=== PATIENT | male | born 1945 | race Caucasian/White ===

== ENCOUNTER 2017-01-03 10:36 | Day surgery (SDC) | payer BC ==
[~2017-01-03] VITALS: Ht 185.4 cm; Wt 140.6 kg
== END 2017-01-03 14:40 | disposition short-term general hospital (02) ==
LOC: SURGOP
PROC: 0DBK8ZZ Excision of Ascending Colon, Via Natural or Artificial Opening Endoscopic (ICD-10-PCS; principal; 2017-01-03)
DX: Z12.11 Encounter for screening for malignant neoplasm of colon (principal); K63.5 Polyp of colon; J45.909 Unspecified asthma, uncomplicated; E78.5 Hyperlipidemia, unspecified; G47.30 Sleep apnea, unspecified; R01.1 Cardiac murmur, unspecified; K42.9 Umbilical hernia without obstruction or gangrene; R73.03 Prediabetes; Z79.899 Other long term (current) drug therapy; Z90.49 Acquired absence of other specified parts of digestive tract
CPT/HCPCS: J2175; J2250